=== PATIENT | male | born 1990 | race Caucasian/White ===

== ENCOUNTER → 2022-09-19 | Emergency (ER) | payer MEDICAID ==
[~2022-09-19] VITALS: Ht 188 cm; Wt 78.5 kg
--- NOTE | 2022-09-19 18:35 | NUR ---
DR. ROTIZ AT BEDSIDE
--- NOTE | 2022-09-19 18:49 | NUR ---
phlebotomy at bedside
[2022-09-19 19:00] VITALS: BP 115/71
--- NOTE | 2022-09-19 19:07 | NUR ---
XRAY AT BEDSIDE
[2022-09-19 19:23] LABS: CALCIUM, SERUM 8.8 mg/dL (8.5-10.1); CARBON DIOXIDE 27 mmol/L (21-32); CHLORIDE 105 mmol/L (98-107); CREATININE 0.9 mg/dL (0.6-1.3); GLUCOSE 95 mg/dL (74-106); POTASSIUM 3.5 mmol/L (3.5-5.1); SODIUM SERUM 139 mmol/L (136-145); UREA NITROGEN, BLOOD 14 mg/dL (7-18)
--- NOTE | 2022-09-19 19:45 | NUR ---
Patient does not wish to proceed with medical care recommended by Dr. Hernandez. Patient given information related to possible complications, up to and including , which could occur as a result of leaving the hospital at this time. Patient verbalizes understanding of risks involved due to leaving against medical advice. Patient has signed AMA form.
[2022-09-19 20:04] LABS: BASOPHILS # (AUTO) 0.1 K/uL (0.0-0.2); BASOPHILS % (AUTO) 0.7 % (0.0-2.0); HEMATOCRIT 47 % (39-51); HEMOGLOBIN 15.4 g/dL (13.5-17.5); LYMPHOCYTES # (AUTO) 3.5 K/uL (0.8-4.8); LYMPHOCYTES % (AUTO) 31.6 % (20.0-44.0); MEAN CORPUSCULAR HGB CONC 33 g/dl (31.0-36.0); MEAN CORPUSCULAR VOLUME 91 fL (80-96); MONOCYTES # (AUTO) 0.6 K/uL (0.1-1.30); MONOCYTES % (AUTO) 5.6 % (2.0-12.0); NEUTROPHILS # (AUTO) 6.5 K/uL (1.8-8.9); NEUTROPHILS % (AUTO) 59.1 % (43.0-81.0); PLATELET COUNT (AUTO) 267 K/uL (150-450); RED BLOOD CELL COUNT(AUTO) 5.13 MIL/uL (4.5-6.0); WHITE BLOOD COUNT (AUTO) 11.1 K/uL (4.3-11.0)
== END | disposition left against medical advice (07) ==
LOC: ER 17:15
DX: I51.7 Cardiomegaly (principal); R07.89 Other chest pain; R10.13 Epigastric pain; Z60.2 Problems related to living alone
CPT/HCPCS: 36415; 71045-TC; 80048-TC; 84484-TC; 85025-TC